=== PATIENT | female | born 1955 | race African-American/Black ===

== ENCOUNTER → 2020-05-30 | Outpatient (CLI) | payer OTHER, MEDICARE ==
[~2020-05-30] MED LIST: ASPIR-TRIN325 MG PO; CELECOXIB200 MG PO; PERCOCET 5-3251 EACH PO; XARELTO10 MG PO
[2020-05-30 11:35] LABS: HEMATOCRIT 32.8 %; HEMOGLOBIN 11.1 gm/dL; MCH 25.7 pg; MCHC 33.8 g/dL; RBC 4.31 mil/uL; WBC 8.8 thou/uL
[2020-05-30 11:43] LABS: URINE BILIRUBIN NEGATIVE (Negative); URINE BLOOD NEGATIVE; URINE CLARITY CLEAR; URINE COLOR YELLOW; URINE GLUCOSE-RANDOM NEGATIVE; URINE KETONES NEGATIVE; URINE LEUKOCYTES-REFLEX NEGATIVE; URINE NITRITE-REFLEX NEGATIVE; URINE PROTEIN NEGATIVE; URINE SPECIFIC GRAVITY >= 1.030; URINE UROBILINOGEN 0.2 E.U./dl
[2020-05-30 11:47] LABS: PROTIME 10.7 Seconds (9.20-11.50)
[2020-05-30 11:50] LABS: ALBUMIN 3.5 g/dL; CALCIUM 8.9 mg/dL; CREATININE 0.7 mg/dL; POTASSIUM 4.1 mmol/L; TOTAL BILIRUBIN 0.7 mg/dL; TOTAL PROTEIN 7.5 g/dL
--- NOTE | 2020-05-30 12:18 | EKG ---
[place] [address] ELECTROCARDIOGRAM REPORT Name: MOOREBEATRICE Lluvia Room: [facility]#: [id number] Admission: 05/30/20 Attend Phys: Wenceslao Guerra, Discharge: Date of : 51 Date of Service: 05/30/20 1151 Report #: [id number] THIS REPORT FOR: //name// [facility] Test Date: 2020-05-30 Test Time: 11:51:55 Pat Name: BEATRICE MOORE Department: Room: Gender: Green Hide Inspector: : 1955 Requested By: Wenceslao Guerra Order Number: [id number] Hannah MD: Johnathan Hand Measurements Intervals [place] Rate: 96 P: 71 WA: 168 QRS: -67 QRSD: 145 T: 55 QT: 399 QTc: 505 Interpretive Statements Sinus rhythm RBBB and LAFB Lateral leads are also involved No previous ECG available for comparison Electronically Signed On 05-30-2020 12:18:14 [employer] by Johnathan Hand [email or web address] <ELECTRONICALLY SIGNED> By: Johnathan Hand MD, [facility] 05/30/20 1218 1151 50 Johnathan Hand MD, FACC /EPI
== END ==
LOC: M.LAB 05-28 13:40 → EDSEX 11:11 → M.LAB 11:11
PROVIDERS: ATTEND Orthopaedic Surgery
DX: Z01.812 Encounter for preprocedural laboratory examination (principal); I45.2 Bifascicular block; Z20.828 Contact with and (suspected) exposure to other viral communicable diseases; Z79.01 Long term (current) use of anticoagulants

== ENCOUNTER 2020-06-04 08:32 | Inpatient (IN) | payer OTHER, MEDICARE ==
[~2020-06-04] VITALS: Ht 157.5 cm; Wt 77.1 kg
--- NOTE | ~2020-06-04 | OP ---
[address] [address] OPERATIVE REPORT Name: MOOREBEATRICE Lluvia Room: [address] [place] M.R.#: [id number] Admission: 06/04/20 Attend Phys: Raquel Harris Discharge: Date of : 51 Report #: [id number] THIS REPORT FOR: //name// cc: Lenka Brown MD, Karmel MD ~ CC: Lenka Obrien DATE OF SERVICE: 06/04/2020 PREOPERATIVE DIAGNOSIS: Right knee osteoarthritis. POSTOPERATIVE DIAGNOSIS: Right knee osteoarthritis. PROCEDURE: Right total knee arthroplasty with Navio. SURGEON: Wenceslao Guerra II, DO. SURGICAL GARMENT ASSEMBLER: LANCE Crain. ANESTHESIA: General endotracheal. ESTIMATED BLOOD LOSS: 50 mL. ANTIBIOTICS: Ancef preoperatively. DRAINS: Medium Hemovac. COMPLICATIONS: None. CONDITION OF THE PATIENT: Stable to recovery room. IMPLANTS: Listed in operative record and progress note. BRIEF HISTORY: The patient was seen in the preoperative area. Preoperative H and P was performed. Site was marked. Questions were answered. Risks and benefits were discussed with the patient in detail about surgery. The patient wished to proceed assuming all risks. DESCRIPTION OF PROCEDURE: The patient was taken to the operative suite and placed supine on the operating room table and given appropriate anesthesia. A well-padded tourniquet applied to upper thigh, which was inflated to 300 mmHg after gravity exsanguination. The operative knee was sterilely prepped and draped. Surgery began by midline incision. This was carried down to the subcutaneous tissues. A medial parapatellar [place] [address] OPERATIVE REPORT Name: BEATRICE MOORE Room: [address] [place] .R.#: [id number] Admission: 06/04/20 Attend Phys: Raquel Harris Discharge: Date of : 51 Report #: [id number] carried down to bone. Patella was then everted and excess soft tissues and osteophytes were removed from around the femur. The femoral tracking and tibial tracking guides were then placed on the femur and tibia in appropriate fashion. This was then registered through the Navio software for appropriate positioning. The femur and tibia were then registered in the software utilizing the hand piece. At this time, the robotic portion was activated and the appropriate sites were then made on the femur and tibia. The femoral cutting block was then applied, checked with drop fariba for rotational alignment as well as the Navio software pinned in appropriate position and appropriate cuts were made. A 4-in-1 cutting block was then applied, checked for rotational alignment, pinned in appropriate position and appropriate cuts were made. The tibia was then exposed. Excess meniscus was removed. Retractor was placed on collateral ligaments. The Navio cutting block was then applied, checked with a product handpiece for appropriate alignment and appropriate cut was made and the excess bone was removed. Tibial base plate was then applied, checked for rotational alignment with the Navio handpiece and pinned in appropriate position. Femur was then applied and box cut was reamed. This was then trialed with appropriate spacer, which showed excellent fit and fill and excellent stability of the knee through all range of motion on the Navio software. The patella was reamed in appropriate fashion and sized to appropriate size. Three peg holes were drilled and it was then trialed and showed excellent flexion, extension, excellent tracking patellofemoral groove. These trials were removed. The tibia was punched in appropriate fashion. Bone ends were cleansed with Pulsavac irrigation and cement was mixed and applied to final implants. These were malleted into position and held the knee in extension and compressed to allow cement to cure. After it cured, excess was removed utilizing Winton and osteotome. Wound was then copiously irrigated and the final spacer was then malleted into position. Tourniquet was deflated. Hemostasis was maintained with electrocautery. Pain cocktail was injected. PRP gel sprayed throughout the internal aspects of the knee. Medium Hemovac drain was applied. Capsule was closed with #2 FiberWire and #1 Vicryl in [id number] fashion. Skin was closed with 2-0 Vicryl and running 3-0 Monocryl. Dermabond and sterile dressing applied. Hawk wrap and PolarCare applied. The patient transported to recovery room in stable condition. Counts were correct throughout the procedure. By: [id number] Guerra II DO /nt
[~2020-06-04 08:32] MED LIST changes: -ASPIR-TRIN325 MG PO; -PERCOCET 5-3251 EACH PO; -XARELTO10 MG PO
[2020-06-04 09:30] VITALS: BP 144/63
[2020-06-04 16:15] VITALS: BP 156/95
--- NOTE | 2020-06-04 16:19 | NUR ---
pt to room 313 via bed from pacu. 02 ON AT 2L PER NC. POLAR ICE ON RIGHT KNEE, FARZAD THIGH HIGH ON LEFT LEG. FEET PUMPS ON. LUNGS CLEAR, HEART TONES REG. +BS X 4 QUADS. PEDAL PULSE PRESENT. C/O ITCHING. SL LEFT FA INTACT AND PATENT. WILL CONTINUE TO MONITOR. AT BEDSIDE.
--- NOTE | 2020-06-04 19:18 | NUR ---
A&OX 4, PWD. PT DENIES PAIN AT THIS TIME. WAS IN CPM X 1 HOUR. HEMOVAC TO RIGHT LEG. POLAR ICE. THIGH HIGH FARZAD HOSE ON LEFT LEG. MAICOL FOOT PUMPS ON. RIGHT KNEE INCISION WITH MEPILEX DRESSING THAT IS C, D & I. PT UP TO COMMODE WITH ASSIST X 1. ITCHING WHEN SHE CAME UP TO FLOOR AND BENADRYL GIVEN. PT CONTINUES TO C/O ITCHING. CALL LIGHT WITHIN REACH. WILL CONTINUE TO MONITOR.
--- NOTE | 2020-06-04 20:06 | NUR ---
pt's daughter to come see her tomorrow 06/05/20 Sheryl Brandon.
[2020-06-04 22:30] VITALS: BP 177/69
[2020-06-05 01:06] VITALS: BP 172/82
[2020-06-05 04:52] LABS: HEMATOCRIT 28.1 % (37.0-47.0); HEMOGLOBIN 9.5 gm/dL (12.0-15.0)
--- NOTE | 2020-06-05 07:10 | NUR ---
CHANGE OF SHIFT, BEDSIDE REPORT GIVEN PATIENT SEEN AT BEDSIDE, IN BED ASLEEP
[2020-06-05 08:00] VITALS: BP 160/75
--- NOTE | 2020-06-05 08:37 | NUR ---
PATIENT SLEPT OFF AND ON DURING THE NIGHT. VSS ON RA. PAIN MEDICATIONS GIVEN VIA IV AND ORAL ROUTE AND CHARTED. ASSESSMENT CHARTED. PATIENT UP WITH ASSIST X 1 WITH WALKER TO BSC. DRESSING TO RIGHT KNEE IS C/D/I, AND FARZAD ALICEA, SCD'S AND POLAR CARE IN PLACE. HEMOVAC TO RIGHT KNEE WITH MODERATE AMOUNT OF SANGUINOUS DRAINAGE. IV IN LEFT FOREARM-SL. IV ABT GIVEN WITHOUT ANY ADVERSE SIDE EFFECTS NOTED. FALL PRECAUTIONS IN PLACE AND HOURLY ROUNDS MADE. WILL CONTINUE WITH PLAN OF CARE AND NURSING TO MONITOR.
[2020-06-05 10:08] VITALS: BP 160/75
[2020-06-05 10:38] VITALS: BP 160/75
[2020-06-05 11:10] VITALS: BP 160/75
--- NOTE | 2020-06-05 11:10 | NUR ---
Pt is A&O. Resides at home with her . Normally active and independent. No DME. No hx of HH. Hx of skilled at [facility] post left knee djd in August. Hx of outpt therapy. Per Pt, plan is to dc to home today with [facility] , KEITH called and confirmed that Pt's insurance is in network with [employer], referral to be faxed at ok, .
--- NOTE | 2020-06-05 12:00 | NUR ---
KEITH CALLED IN PRESCRIPTION FOR XARELTO WRITTEN TO PTS [facility]ARM[facility]. CHECKED COPAY AT THIS TIME. IT IS $45. PT.INFORMED. SHE CANNOT AFFFORD THIS. ORDERED ASA 325MG PO DAILY X 12 DAYS. XARELTO DISCONTINUED. ORDER WRITTEN. PT.INFORMED. GUEVARA HONEYUCTT INFORMED. FAXED H&P,OP REPORT,DISCHARGE SUMMARY, DISCHARGE INSTRUCTIONS AND NEW ORDER FOR ASA TO [facility] [phone]. THEY WILL CALL PT.TOMORROW TO SET UP APPT. PT.SAID DAUGHTER IS FLYING IN FROM [place] THIS AM AND WILL COME TO PICK HER UP AFTER LUNCH.
[2020-06-05] MEDS ORDERED: XARELTO10 MG PO (12:16)
[2020-06-05 12:55] VITALS: BP 160/75
[2020-06-05] MEDS ORDERED: ASPIR-TRIN325 MG PO (13:44)
--- NOTE | 2020-06-05 13:45 | NUR ---
PATIENT DECLINED XARELTO DUE TO HIGH COPAY ORDER OK BY FREDERICK MCMULLEN FOR ASA 325MG PO DAILY FOR [address] CARTER NOTIFIED
[2020-06-05] MEDS ORDERED: PERCOCET 5-3251 EACH PO (13:46)
--- NOTE | 2020-06-05 14:37 | NUR ---
RECIEVED O.T. ORDERS. WILL DEFER TO P.T. AT THIS TIME. PLEASE ORDER FURTHER O.T. SERVICES IF NEEDED.
== END 2020-06-05 13:30 | disposition home or self-care (01) | DRG 470 ==
LOC: M.TBA 08:32 → M.ORTHSURG 09:57 → M.3W 16:13
PROVIDERS: Orthopaedic Surgery; ADMIT Internal Medicine; ATTEND Internal Medicine
PROC: 0SRC0J9 Replacement of Right Knee Joint with Synthetic Substitute, Cemented, Open Approach (ICD-10-PCS; principal; 2020-06-04)
PROC: 8E0Y0CZ Robotic Assisted Procedure of Lower Extremity, Open Approach (ICD-10-PCS; principal; 2020-06-04)
DX: M17.11 Unilateral primary osteoarthritis, right knee (principal); Z98.41 Cataract extraction status, right eye; D56.3 Thalassemia minor; Z79.899 Other long term (current) drug therapy